=== PATIENT | female | born 1965 | race Caucasian/White ===

== ENCOUNTER 2020-04-30 12:06 | Day surgery (SDC) | payer OTHER ==
[2020-04-23 17:59] VITALS: BMI 18.6
[2020-04-30] MEDS ORDERED: MIDAZOLAM HCL 2 MG/2 ML SINGLE DOSE VIAL ONE (14:19)
[2020-04-30] MEDS ORDERED: PROPOFOL 20 ML ONE ×2 (14:19→14:59)
[2020-04-30] MEDS ORDERED: ONDANSETRON 4 MG/2 ML VIAL ONE ×2 (15:00→15:55)
[2020-04-30] MEDS ORDERED: ceFAZolin SODIUM 1 GM VIAL ONE (15:00)
[2020-04-30] MEDS ORDERED: DEXAMETHASONE SOD PHOSPHATE 4 MG/1 ML VIAL ONE (15:00)
[2020-04-30 16:38] VITALS: TEMP 97.6
[2020-04-30 17:07] VITALS: BP 122/74; PULSE 61
== END 2020-04-30 17:09 | disposition home or self-care (01) ==
LOC: FASU 12:06
PROVIDERS: ATTEND Orthopaedic Surgery Hand Surgery
PROC: 0PST04Z Reposition Right Finger Phalanx with Internal Fixation Device, Open Approach (ICD-10-PCS; principal; 2020-04-30 15:01)
DX: S62.638A Displaced fracture of distal phalanx of other finger, initial encounter for closed fracture (principal); M20.011 Mallet finger of right finger(s); X58.XXXA Exposure to other specified factors, initial encounter; Y92.9 Unspecified place or not applicable; Y93.9 Activity, unspecified
CPT/HCPCS: 26765; C1713; 73140-TC-RT-FY; 84703